=== PATIENT | male | born 1945 | race Caucasian/White ===

== ENCOUNTER 2019-09-09 03:53 | Emergency (ER) | payer MEDICARE, OTHER ==
[2019-09-09] MEDS ORDERED: Sodium Chloride 0.9% 10 ML Syringe FLUSH PRN (04:01)
--- NOTE | 2019-09-09 04:05 | EDM.PDOC ---
<Jeannie Vilchis - Last Filed: 09/09/19 04:57> ED HPI GENERAL MEDICAL PROBLEM - General Chief Complaint: Chest Pain Stated Complaint: CHEST PAINS Time Seen by Provider: 09/09/19 03:58 Source of Information: Reports: Patient, Family, RN, RN Notes Reviewed History Limitations: Reports: No Limitations - History of Present Illness INITIAL COMMENTS - FREE TEXT/NARRATIVE: patient to ER with complaint of chest pains. Patient states the pains woke him up at 03 20. Patient denies any cardiac history, denies problems with indigestion. Patient states minimal health history. Patient states he rates the pain a 3/10, and was a 6/10 earlier. Patient states when he awoke he was cool and diaphoretic and had severe epigastric/mid sternal chest pain. Denies radiation to the neck arm or back. Patient states he just completed taking amoxicillin for sinus infection. states the patient had a similar episode in [facility] on Sunday. also states patient has a mitral valve regurgitation. Onset: Today, Sudden Mid-Sternal Chest Pain Score (Numeric/FACES): 6 - Related Data Allergies Allergy/AdvReac Type Severity Reaction Status Date / Time No Known Allergies Allergy Verified 09/09/19 04:01 Home Meds: Home Meds Omeprazole 20 mg PO DAILY #30 capsule. 09/09/19 [Rx] ED ROS GENERAL - Review of Systems Review Of Systems: Comprehensive ROS is negative, except as noted in HPI. ED EXAM, GENERAL - Physical Exam Exam: See Below Exam Limited By: No Limitations General Appearance: Alert, WD/WN, No Apparent Distress, Anxious Eye Exam: Bilateral Eye: EOMI, Normal Inspection Ears: Normal External Exam, Hearing Grossly Normal Nose: Normal Inspection Throat/Mouth: Normal Inspection, Normal Voice, No Airway Compromise Head: Atraumatic, Normocephalic Neck: Normal Inspection, Supple, Non-Tender, Full Range of Motion Respiratory/Chest: No Respiratory Distress, Lungs Clear, Normal Breath Sounds, No Accessory Muscle Use, Chest Non-Tender Cardiovascular: Normal Peripheral Pulses, Regular Rate, Rhythm, No Edema, No Gallop, No JVD, No Murmur, No Rub Peripheral Pulses: 2+: Radial (L), Radial (R) GI/Abdominal: Normal Bowel Sounds, Soft, Tender (epigastrum) (Male) Exam: Deferred Rectal (Males) Exam: Deferred Back Exam: Normal Inspection, Full Range of Motion, NT Extremities: Normal Inspection, Normal Range of Motion, Non-Tender, Normal Capillary Refill, No Pedal Edema Neurological: Alert, Oriented, CN II-XII Intact, Normal Cognition, Normal Gait, Normal Reflexes, No Motor/Sensory Deficits Psychiatric: Normal Affect, Normal Mood, Anxious Skin Exam: Warm, Dry, Intact, Normal Color, No Rash Lymphatic: No Adenopathy Course - Vital Signs Last Recorded V/S: Last Vital Signs Temp 37.0 C 09/09/19 05:30 Pulse 71 09/09/19 05:30 Resp 16 09/09/19 05:30 BP 159/89 H 09/09/19 05:30 Pulse Ox 100 09/09/19 05:30 - Orders/Labs/Meds Labs: Laboratory Tests 09/09/19 09/09/19 09/09/19 Range/Units 04:10 04:10 04:10 WBC 6.4 (5.0-10.0) 10^3/uL RBC 4.82 (4.6-6.2) 10^6/uL Hgb 15.4 (14.0-18.0) g/dL Hct 44.0 (40.0-54.0) % MCV 91.3 (80-100) fL MCH 32.0 (27.0-34.0) pg MCHC 35.0 (33.0-35.0) g/dL Plt Count 162 (150-450) 10^3/uL Neut % (Auto) 57.3 (42.2-75.2) % Lymph % (Auto) 31.5 (20.5-50.1) % Antelope % (Auto) 8.8 H (2-8) % Eos % (Auto) 2.2 (1.0-3.0) % Baso % (Auto) 0.2 (0.0-1.0) % PT 10.6 (9.0-12.0) SEC INR 1.0 (0.9-1.2) Sodium 139 (135-145) mmol/L Potassium 3.6 (3.6-5.0) mmol/L Chloride 103 (101-111) mmol/L Carbon Dioxide 27.0 (21.0-31.0) mmol/L Anion Gap 12.6 BUN 26 H (7-18) mg/dL Creatinine 1.2 (0.6-1.3) mg/dL Est Cr Clr Drug Dosing 53.19 mL/min Estimated GFR (MDRD) 59 BUN/Creatinine Ratio 21.66 Glucose 115 H (74-105) mg/dL Calcium 8.7 (8.4-10.2) mg/dl Total Bilirubin 0.9 (0.2-1.0) mg/dL AST 72 H (10-42) IU/L ALT 60 (10-60) IU/L Alkaline Phosphatase 69 (42-121) IU/L Troponin I < 0.02 (0.00-0.02) ng/ml Total Protein 6.4 L (6.7-8.2) g/dl Albumin 3.7 (3.2-5.5) g/dl Globulin 2.7 Albumin/Globulin Ratio 1.37 // Range/Units 08:10 WBC (5.0-10.0) 10^3/uL RBC (4.6-6.2) 10^6/uL Hgb (14.0-18.0) g/dL Hct (40.0-54.0) % MCV (80-100) fL MCH (27.0-34.0) pg MCHC (33.0-35.0) g/dL Plt Count (150-450) 10^3/uL Neut % (Auto) (42.2-75.2) % Lymph % (Auto) (20.5-50.1) % Antelope % (Auto) (2-8) % Eos % (Auto) (1.0-3.0) % Baso % (Auto) (0.0-1.0) % PT (9.0-12.0) SEC INR (0.9-1.2) Sodium (135-145) mmol/L Potassium (3.6-5.0) mmol/L Chloride (101-111) mmol/L Carbon Dioxide (21.0-31.0) mmol/L Anion Gap BUN (7-18) mg/dL Creatinine (0.6-1.3) mg/dL Est Cr Clr Drug Dosing mL/min Estimated GFR (MDRD) BUN/Creatinine Ratio Glucose (74-105) mg/dL Calcium (8.4-10.2) mg/dl Total Bilirubin (0.2-1.0) mg/dL AST (10-42) IU/L ALT (10-60) IU/L Alkaline Phosphatase (42-121) IU/L Troponin I < 0.02 (0.00-0.02) ng/ml Total Protein (6.7-8.2) g/dl Albumin (3.2-5.5) g/dl Globulin Albumin/Globulin Ratio Meds: Medications Discontinued Medications Generic Name Dose Route Start Last Admin Trade Name Freq PRN Reason Stop Dose Admin Al Hydroxide/Mg Hydroxide 30 ml 09/09/19 04:55 09/09/19 05:06 Gi Cocktail PO 09/09/19 04:56 30 ml ONETIME ONE Administration Famotidine 20 mg 09/09/19 04:56 09/09/19 05:01 Pepcid IVPUSH 09/09/19 04:57 20 mg ONETIME ONE Administration Sodium Chloride 10 ml 09/09/19 04:01 09/09/19 04:13 Saline Flush FLUSH 10 ml ASDIRECTED PRN Administration Keep Vein Open - Radiology Interpretation Free Text/Narrative:: Chest xray: FINDINGS: Lungs: Unremarkable. No consolidation. Pleural space: Unremarkable. No pleural effusion. No pneumothorax. Heart/Mediastinum: Unremarkable. No cardiomegaly. Bones/joints: Unremarkable. IMPRESSION: No acute findings. Thank you for allowing us to participate in the care of your patient. Dictated and Authenticated by: Blake Marlow MD 09/09/2019 4:35 AM Central Time ([place] & [place]) See rad report Departure - Departure Disposition: Home, Self-Care 01 Clinical Impression: Esophagitis Prescriptions: Omeprazole 20 mg PO DAILY #30 capsule. Instructions: Esophagitis Referrals: PCP,Unobtain [Primary Care Provider] - Forms: ED Department Discharge Additional Instructions: Take the omeprazole daily, follow up with your Family physician within the next two weeks Sepsis Event Note - Evaluation Sepsis Screening Result: No Definite Risk - Focused Exam Date Exam was Performed: 09/09/19 Time Exam was Performed: 04:57 <Ravindra Newton - Last Filed: 09/10/19 14:07> Course - Re-Assessments/Exams Free Text/Narrative Re-Assessment/Exam: Repeat troponin was negative, patient was discharged home Departure - Departure Time of Disposition: 09:10 Sepsis Event Note - Focused Exam Date Exam was Performed: 09/10/19 Time Exam was Performed: 14:06 - Problem List & Annotations (1) Esophagitis SNOMED Code(s): 17628977 Code(s): K20.9 - ESOPHAGITIS, UNSPECIFIED Status: Acute - Problem List Review Problem List Initiated/Reviewed/Updated: Yes - Assessment/Plan Assessment:: Assessment: 1. Esophagitis Plan: Plan: 1. We will send him home with omeprazole, 20 mg daily. He is strongly encouraged to have a follow-up appointment with his primary provider.
[2019-09-09 04:37] LABS: ANION GAP 12.6; CHLORIDE,CL 103 mmol/L (101-111); SODIUM,NA 139 mmol/L (135-145)
[2019-09-09] MEDS ORDERED: GI Cocktail Oral Solution 30 ML PO ONE (04:55)
[2019-09-09] MEDS ORDERED: Famotidine 20 MG/2 ML SDV IVPUSH ONE (04:56)
== END 2019-09-09 09:15 | disposition home or self-care (01) ==
LOC: DL.ED 03:53
DX: K20.9 Esophagitis, unspecified (principal)
CPT/HCPCS: 36415; 71045; 80053; 84484; 85025; 85610; 93005; 96374; 99283; 99285; A9270; J3490

== ENCOUNTER 2024-10-12 09:53 | Emergency (ER) | payer MEDICARE, OTHER ==
[2024-10-12 11:06] LABS: BASOPHILS PERCENT AUTO 0.2 % (0.0-1.0); EOSINOPHILS PERCENT AUTO 0.6 % (1.0-3.0); LYMPHOCYTES PERCENT AUTO 7.5 % (20.5-50.1); MEAN CORPUSCULAR HEMOGLOBIN 31.1 pg (27.0-34.0); MEAN CORPUSCULAR HGB CONC 34.9 g/dL (33.0-35.0); MONOCYTES PERCENT AUTO 9.3 % (2-8); NEUTROPHILS PERCENT AUTO 82.4 % (42.2-75.2); PLATELET COUNT,PLT 143 10^3/uL (150-450); RED BLOOD CELL COUNT 4.83 10^6/uL (4.6-6.2); WHITE BLOOD CELL COUNT,WBC 8.9 10^3/uL (5.0-10.0)
[2024-10-12] MEDS: Dexamethasone 4 MG/ML SDV IM ONE (12:20)
== END 2024-10-12 12:35 | disposition home or self-care (01) ==
LOC: DL.ED 09:53
DX: U07.1 COVID-19 (principal); R51.9 Headache, unspecified; Z79.899 Other long term (current) drug therapy
CPT/HCPCS: 36415; 70486; 85025; 87428; 96372; 99283; 99284; J1100